=== PATIENT | female | born 1960 | race Caucasian/White ===

== ENCOUNTER 2017-04-25 19:55 | Inpatient (IN) | payer BC ==
[~2017-04-25] VITALS: Ht 165.1 cm; Wt 88.0 kg
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
--- NOTE | 2017-04-25 20:12 | NUR ---
AT BEDSIDE FOR EVAL.
[2017-04-25] MEDS ORDERED: KETOROLAC TROMETHAMINE INJ 30 MG/ML VIAL ONE (20:24)
[2017-04-25] MEDS ORDERED: KETOROLAC TROMETHAMINE INJ 60 MG/2 ML VIAL IM ONE (20:30)
--- NOTE | 2017-04-25 20:57 | NUR ---
PT TO XRAY VIA STRETCHER.
--- NOTE | 2017-04-25 21:11 | NUR ---
PT BACK FROM XRAY.
--- NOTE | 2017-04-25 22:12 | NUR ---
CALLED [employer] ENGINEER WAS PAGED.
--- NOTE | 2017-04-25 22:47 | NUR ---
PT SPEAKING WITH FAMILY AT BEDSIDE. VSS.
[2017-04-25] MEDS ORDERED: Z GUARD REMEDY 2 OZ OINT TP PRN (23:00)
[2017-04-25] MEDS ORDERED: IV NS 0.9% 1,000 ML BAG IV ONE (23:00)
[2017-04-25] MEDS ORDERED: ONDANSETRON HCL/PF 4 MG/2 ML VIAL IVP PRN (23:00)
[2017-04-25] MEDS ORDERED: ACETAMINOPHEN 325 MG TABLET PO PRN (23:00)
[2017-04-25] MEDS ORDERED: MAG HYDROX/AL HYDROX/SIMETH 30 ML UDC PO PRN (23:00)
[2017-04-25] MEDS ORDERED: MAGNESIUM HYDROXIDE 30 ML UDC PO PRN (23:00)
[2017-04-25] MEDS ORDERED: ZOLPIDEM TARTRATE 5 MG TABLET PO PRN (23:00)
[2017-04-25] MEDS ORDERED: HYDROMORPHONE INJ 2 MG/ML DISP.SYRIN IV PRN (23:00)
[2017-04-25] MEDS ORDERED: ACETAMINOPHEN ES 500 MG TABLET PO ONE (23:00)
[2017-04-25] MEDS ORDERED: HYDROCODONE/APAP 10/325MG 1 EA TABLET PO PRN (23:00)
[2017-04-25] MEDS ORDERED: ACETAMINOPHEN ES 500 MG TABLET ONE (23:02)
--- NOTE | 2017-04-25 23:16 | NUR ---
20G IV TO L HAND USING ASEPTIC TECH, BLOOD HANDED OVER TO LAB AT BEDSIDE.
--- NOTE | 2017-04-25 23:24 | NUR ---
PT ADMIT TO MS 306-2.
[2017-04-25 23:34] LABS: INR 0.96 (0.87-1.13)
[2017-04-25 23:35] LABS: ALBUMIN 3.8 g/dL (3.4-5.0); BILIRUBIN,DIRECT 0.1 mg/dL (0.0-0.2); BILIRUBIN,TOTAL 0.4 mg/dL (0.2-1.0)
--- NOTE | 2017-04-25 23:38 | NUR ---
REPORT CALLED TO [facility] FOR KATHLEEN.
--- NOTE | 2017-04-25 23:59 | NUR ---
PT TO MS 306-2 VIA STRETCHER WITH EMT. LUIS MANUEL.
[2017-04-26 00:10] VITALS: BP 136/71
--- NOTE | 2017-04-26 00:10 | NUR ---
MS RN OPENING NOTES: RECEIVED PT FROM ER. PT IS A/OX3-4. PT HAS IV ON L HAND #22G WITH NS BEING INFUSED BOLUS. BAG ALMOST FINISHED. PT HAS NECK BRACE ON AND SHE REPORTED THAT IT WAS APPLIED ON HER BY EMS TO RULE OUT SPINAL CORD INJURY. NO S/S OF DISTRESS NOTED AT THIS TIME. SON AT BEDSIDE. RACHAEL LIGHT WITHIN PT'S REACH. BED KEPT IN LOW, LOCKED POSITION, AND SIDE RAILS X 2 UP. WILL CONTINUE TO MONITOR PT.
[2017-04-26 00:21] VITALS: BP 136/71
[2017-04-26] MEDS ORDERED: HYDROCODONE/APAP 5/325MG 1 EACH TABLET ONE ×2 (00:45→06:58)
[2017-04-26] MEDS: HYDROCODONE/APAP 5/325MG 1 EACH TABLET PO PRN ×3 (00:50→16:13)
--- NOTE | 2017-04-26 00:50 | NUR ---
MS RN NOTES: PT COMPLAINING OF 6/10 NECK, B SHOULDERS, AND B ARM PAIN. PT WAS ADMINISTERED NORCO 5 PO. WILL CONTINUE TO MONITOR PT.
[2017-04-26] MEDS ORDERED: ROSU10TA PO (03:09)
[2017-04-26] MEDS ORDERED: TRIA1TAB3 PO (03:09)
[2017-04-26] MEDS ORDERED: LOSA1TAB35 PO (03:09)
[2017-04-26] MEDS ORDERED: BUPR300T54 PO (03:09)
[2017-04-26] MEDS ORDERED: CHOL100044 PO (03:09)
[2017-04-26 06:26] LABS: BASOPHILS % (AUTO) 0.2 % (0.0-2.0); EOSINOPHILS # (AUTO) 0.2 /CMM (0.0-0.7); EOSINOPHILS % (AUTO) 2.7 % (0.0-6.0); HEMATOCRIT 39 % (33-45); HEMOGLOBIN 13.4 g/dL (11.5-14.8); LYMPHOCYTES # (AUTO) 2.8 /CMM (0.8-4.8); LYMPHOCYTES % (AUTO) 39.4 % (20.0-44.0); MEAN CORPUSCULAR HEMOGLOBIN 32 PG (26.0-33.0); MEAN CORPUSCULAR HGB CONC 35 g/dl (31.0-36.0); MEAN CORPUSCULAR VOLUME 92 fL (82-100); MONOCYTES # (AUTO) 0.5 /CMM (0.1-1.30); MONOCYTES % (AUTO) 7.3 % (2.0-12.0); NEUTROPHILS # (AUTO) 3.5 /CMM (1.8-8.9); NEUTROPHILS % (AUTO) 50.4 % (43.0-81.0); PLATELET COUNT (AUTO) 220 /CMM (150-450); RDW COEFFICIENT OF VARIATION 13.1 (11.5-15.0)
--- NOTE | 2017-04-26 06:40 | NUR ---
MS RN CLOSING NOTES: ALL NEEDS WERE ATTENDED AND ANTICIPATED FOR. PT IS A/OX3-4. PT HAS IV ON L HAND #22G AND IS CURRENTLY S/L. PT HAS CERVICAL COLLAR ON. NO S/S OF DISTRESS NOTED AT THIS TIME. SON AT BEDSIDE. RACHAEL LIGHT WITHIN PT'S REACH. BED KEPT IN LOW, LOCKED POSITION, AND SIDE RAILS X 2 UP. WILL ENDORSE TO AM NURSE FOR KATHLEEN.
[2017-04-26 06:51] LABS: CREATININE 0.6 mg/dL (0.6-1.3); MAGNESIUM 2.2 mg/dL (1.8-2.4); PHOSPHORUS 5.4 mg/dL (2.5-4.9); POTASSIUM 3.2 mmol/L (3.5-5.1)
[2017-04-26 08:00] VITALS: BP 136/85
--- NOTE | 2017-04-26 08:53 | NUR ---
TEXTED DR. CENTENO FOR MRI APPROVAL
[2017-04-26] MEDS ORDERED: CYCLOBENZAPRINE 10 MG TABLET PO PRN (09:00)
--- NOTE | 2017-04-26 09:43 | NUR ---
medicated with flexeril 10 mg po.
[2017-04-26] MEDS: POTASSIUM CHLORIDE 20 MEQ TAB.PRT.SR PO SCH ×3 (10:27→11:30)
--- NOTE | 2017-04-26 10:30 | NUR ---
[facility]
--- NOTE | 2017-04-26 10:31 | NUR ---
PT. REFUSING POTASSIUM-STATES NOT TAKING POTASSIUM BECAUSE HER POTASSIUM OFF DUE TO ONE OF HER BP MEDS,AND RIGHT NOW THEY'RE TRYING TO FIGURE OUT WHAT,S GOING ON.DR. SANDOVAL INFORMED.
--- NOTE | 2017-04-26 11:33 | NUR ---
PT. STILL REFUSING POTASSIUM,MD AWARE.
[2017-04-26 16:00] VITALS: BP 148/82
--- NOTE | 2017-04-26 18:00 | NUR ---
DR. SANDOVAL CALLED WITH MRI REPORT,Norma KHALIL DC IF PT. HAS IMMEDIATE FOLLOW UP,SOFT COLLAR,SOFT COLLAR NOT AVAILABLE,PT. TO PROVIDE MD STATES PT. MAY HAVE A WHIPLASH.PT. AWAITING RXS FOM DAY TREATMENT CLINICIAN/ART THERAPIST NIGHT .
--- NOTE | 2017-04-26 20:05 | NUR ---
MS RN NOTES DISCHARGE WITH PRESCRIPTION WRITTEN BY DR SAENZ.HOME WITH FAMILY MEMBERS IN STABLE CONDITION.
== END 2017-04-26 20:10 | disposition home or self-care (01) | DRG 93 ==
LOC: ER 19:57 → MED 23:18
PROVIDERS: ADMIT Internal Medicine; ATTEND Internal Medicine
DX: R20.2 Paresthesia of skin (principal); E66.9 Obesity, unspecified; E78.5 Hyperlipidemia, unspecified; E87.6 Hypokalemia; I10 Essential (primary) hypertension; Z98.1 Arthrodesis status; S16.1XXA Strain of muscle, fascia and tendon at neck level, initial encounter; V43.52XA Car driver injured in collision with other type car in traffic accident, initial encounter; Y92.410 Unspecified street and highway as the place of occurrence of the external cause; Z68.30 Body mass index [BMI] 30.0-30.9, adult; M50.321 Other cervical disc degeneration at C4-C5 level
CPT/HCPCS: 36415; 71010-TC; 72125-TC; 72141-TC; 73130-TC; 80048-TC; 80076-TC; 83690-TC; 83735-TC; 84100-TC; 85025-TC; 85730-TC; 87081-TC; A4606; J1885; J7030; Z7610